=== PATIENT | female | born 1950 | race Caucasian/White ===

== ENCOUNTER 2017-09-16 15:51 | Outpatient (CLI) | payer MEDICARE, BC | END 2017-09-16 15:52 | disposition home or self-care (01) | LOC: BICMAMMO 15:51 | PROVIDERS: ATTEND Family Medicine | DX: Z12.31 Encounter for screening mammogram for malignant neoplasm of breast (principal) | CPT/HCPCS: 77063; 77067 ==

== ENCOUNTER 2018-09-17 14:15 | Outpatient (CLI) | payer MEDICARE, BC ==
--- NOTE | 2018-10-01 15:54 | MMO ---
Bilateral MAMMO Bilat Screen [facility]. CLINICAL HISTORY: Patient is 68 years old and is seen for screening. The patient has no family history of breast cancer. The patient has no personal history of cancer. VIEWS: The views performed were: bilateral craniocaudal with tomosynthesis and bilateral mediolateral oblique with tomosynthesis. FILMS COMPARED: The present examination has been compared to prior imaging studies performed at [facility] on 09/22/2007, 09/21/2008, 09/21/2009, 08/10/2010, 08/10/2011, 08/15/2012, 08/20/2013, 08/20/2014, 08/30/2015, 09/04/2016 and 09/16/2017, and at [facility] on 09/17/2005 and 09/18/2006. MAMMOGRAM FINDINGS: There are scattered fibroglandular densities. There are no suspicious masses, suspicious calcifications, or new areas of architectural distortion. IMPRESSION: THERE IS NO MAMMOGRAPHIC EVIDENCE OF MALIGNANCY. A ROUTINE FOLLOW-UP MAMMOGRAM IN 1 YEAR IS RECOMMENDED. THE RESULTS OF THIS EXAM WERE SENT TO THE PATIENT. ACR BI-RADS Category 1 - Negative MAMMOGRAPHY NOTE: 1. A negative mammogram report should not delay a biopsy if a dominant of clinically suspicious mass is present. 2. Approximately 10% to 15% of breast cancers are not detected by mammography. 3. Adenosis and dense breasts may obscure an underlying neoplasm.
== END 2018-09-17 14:16 | disposition home or self-care (01) ==
LOC: BICMAMMO 14:15
PROVIDERS: ATTEND Family Medicine
DX: Z12.31 Encounter for screening mammogram for malignant neoplasm of breast (principal)
CPT/HCPCS: 77063; 77067

== ENCOUNTER 2019-09-01 14:20 | Outpatient (CLI) | payer MEDICARE, BC ==
[2019-09-01] MEDS ORDERED: Magnevist 469MG/ML 20 ML VIAL ONE (14:42)
--- NOTE | 2019-09-01 15:53 | MRI ---
LUMBAR SPINE MRI WITH AND WITHOUT CONTRAST: HISTORY: Lumbar radiculopathy. Low back pain, mainly down the left leg. COMPARISON: 12/08/2015. TECHNIQUE: MRI lumbar spine is performed with and without intravenous gadolinium administration. Multisequential , multiplanar imaging was performed. FINDINGS: Bilateral transpedicular screws at L4 and L5 with associated metallic susceptibly artifact. There is appropriate T1 marrow signal intensity of the lumbar vertebrae. Lumbar spine vertebral body height is maintained. No fracture. There are type I Modic changes at the L3-L4 level. Spondylolisthesis: L3-L4: 6.9 mm of anterolisthesis. L4-L5: 6.5 mm of anterolisthesis. The spondylolisthesis at L3-L4 has developed since the previous exa mination. There appears be associated bilateral spondylolysis. Anterolisthesis at L4-L5 is stable. Appropriate signal intensity of the visualized paraspinal muscles. T2 hyperintensity in the left renal cortex, compatible with a cortical cyst. Smaller cortical cyst in the right kidney. Conus medullaris terminates at the upper aspect of T12. Postcontrast images do not demonstrate abnormal enhancement within the thecal sac. No abnormal enhanc ement of the cauda equina or conus medullaris. T12-L1: Adequate disc hydration. No significant central canal stenosis or significant neural foramina l narrowing. L1-L2: Adequate disc hydration. Minimal ligament flavum thickening and facet hypertrophy. No signific ant central canal stenosis. Bilaterally, neural foramina are patent. L2-L3: Minimal disc desiccation with minimal loss of disc space height. Broad-based disc bulge, minim al ligament flavum thickening and facet hypertrophy result in mild central canal stenosis. Right neural foramen is patent. Mild left neural foraminal narrowing. L3-L4: Disc desiccation with moderate loss of disc space height. Broad-based disc bulge, ligament fla vum thickening and facet hypertrophy result in moderate to severe central canal stenosis. There is fluid in both facet joints. 0.4 cm left sided synovial cyst, contributes to the overall degree of candice tral canal stenosis. Moderate bilateral neural foraminal narrowing. L4-L5: Disc desiccation with moderate loss of disc space height. Broad-based disc bulge, ligament fla vum thickening and facet hypertrophy result in moderate to severe central canal stenosis. Limited evaluation of the neural foramina due to metallic susceptibly artifact. At least mild bilateral elizabeth inal narrowing. L5-S1: Disc desiccation with moderate loss of disc space height. Broad-based disc bulge contacts the thecal sac. No significant mass effect upon the thecal sac. Disc material encroaches upon the left and right subarticular zone. There is contact with both traversing S1 nerve roots without significant mass effect or obscuration. Mild ligament flavum thickening and facet hypertrophy. Overall no significant central canal stenosis. Mild to moderate bilateral neural foraminal narrowing. Incidental T2 hyperintensity in the thecal sac at the S2 level, likely representing a Tarlov cyst. Septated T2 hyperintensity in the left adnexa, incompletely evaluated possibly representing a 3.2 cm left ovarian cyst. Finding is unchanged from the examination from November 2015. IMPRESSION: 1. Lumbar fusion at L4-L5. Stable grade 1 anterolisthesis of L4 upon L5. 2. Interval development of grade 1 anterolisthesis of L3 upon L4 with associated bilateral spondyloly sis. 3. Significant neural foraminal narrowing and central canal stenosis as described above. Transcribed Date/Time: 09/01/2019 3:59 PM
== END 2019-09-01 14:21 | disposition home or self-care (01) ==
LOC: TBSIIMAG 14:20
PROVIDERS: ATTEND Neurological Surgery
DX: M47.26 Other spondylosis with radiculopathy, lumbar region (principal); M43.16 Spondylolisthesis, lumbar region; M48.061 Spinal stenosis, lumbar region without neurogenic claudication; Z98.1 Arthrodesis status
CPT/HCPCS: 72158; A9579

== ENCOUNTER 2019-10-19 15:18 | Outpatient (CLI) | payer MEDICARE, BC ==
--- NOTE | 2019-10-19 15:59 | MMO ---
Bilateral MAMMO Bilat Screen [facility]. CLINICAL HISTORY: Patient is 69 years old and is seen for screening. The patient has no family history of breast cancer. The patient has no personal history of cancer. VIEWS: The views performed were: bilateral craniocaudal with tomosynthesis; bilateral mediolateral oblique with tomosynthesis; and left mediolateral oblique. FILMS COMPARED: The present examination has been compared to prior imaging studies performed at [facility] on 09/04/2016, 09/16/2017 and 09/17/2018. This study has been interpreted with the assistance of computer-aided detection. MAMMOGRAM FINDINGS: There are scattered fibroglandular densities. There are no suspicious masses, suspicious calcifications, or new areas of architectural distortion. IMPRESSION: THERE IS NO MAMMOGRAPHIC EVIDENCE OF MALIGNANCY. A ROUTINE FOLLOW-UP MAMMOGRAM IN 1 YEAR IS RECOMMENDED. THE RESULTS OF THIS EXAM WERE SENT TO THE PATIENT. ACR BI-RADS Category 1 - Negative MAMMOGRAPHY NOTE: 1. A negative mammogram report should not delay a biopsy if a dominant of clinically suspicious mass is present. 2. Approximately 10% to 15% of breast cancers are not detected by mammography. 3. Adenosis and dense breasts may obscure an underlying neoplasm. Reported by: AMANDA JIM MD Electonically Signed: [id number]
== END 2019-10-19 15:19 | disposition home or self-care (01) ==
LOC: BICMAMMO 15:18
PROVIDERS: ATTEND Family Medicine
DX: Z12.31 Encounter for screening mammogram for malignant neoplasm of breast (principal)
CPT/HCPCS: 77063; 77067

== ENCOUNTER 2020-01-05 06:53 | Outpatient (CLI) | payer MEDICARE, BC, OTHER ==
[2020-01-06 13:33] LABS: SARS-CoV-2 MS2 Positive; SARS-CoV-2 N Gene Negative; SARS-CoV-2 S Gene Negative; SARS-CoV-2 orf1ab Negative
== END 2020-01-05 06:54 | disposition home or self-care (01) ==
LOC: LABBT 06:53
PROVIDERS: ATTEND Neurological Surgery
DX: Z01.812 Encounter for preprocedural laboratory examination (principal); Z11.59 Encounter for screening for other viral diseases; M54.16 Radiculopathy, lumbar region
CPT/HCPCS: 87635; U0003

== ENCOUNTER 2020-01-08 05:47 | Observation (INO) | payer MEDICARE, BC ==
[2020-01-04 12:26] VITALS: BMI 37.5
--- NOTE | 2020-01-08 05:53 | HP ---
HISTORY OF PRESENT ILLNESS: Ms. Paz is known to us for distant lumbar decompression a few years ago, returns now with some semblance of recurrent pain as last summer, this is manifesting as a left lower extremity L5 pattern with some tingling in addition to a deep aching pain. This travels the length of the leg, stopping mid to lower xiong before reaching the foot. She really has no right lower extremity pain to speak of. Her pain is worse when lying flat in bed, more on the left side. She does feel that her leg gives out at times when walking. She sleeps in a recliner as this prevents some of the more severe symptoms. Chiropractor has helped her, although on a limited basis. She takes [id number] medications with marginal relief. New MRI reveals profound spinal stenosis at L3-4, likely explaining really any symptoms below that level. PHYSICAL EXAMINATION: She is alert and oriented x3. Gait is slowed and antalgic. Lower extremity motor exam is normal. Mildly positive left straight leg raise, normal on the right. PAST MEDICAL HISTORY: Hypertension, hypothyroidism. CURRENT MEDICATIONS: Levothyroxine, lisinopril, hydrochlorothiazide, Caltrate, magnesium. ALLERGIES: NO KNOWN DRUG ALLERGIES. PAST SURGICAL HISTORY: Bilateral knee replacement, lumbar decompression, hysterectomy. ASSESSMENT: Lumbar spinal stenosis. PLAN: Dr. Weinberg met with the patient, reviewed imaging, and advocated for an L3-L4 decompression. He explained to the patient risks, benefits, and alternatives to the procedure. The patient expressed understanding and elected to move forward with surgery as discussed. I do believe the patient is mentally competent and capable of making medical decisions for herself. We will move forward with surgery as planned. Job ID: [id number]
[2020-01-08] MEDS ORDERED: Bupivacaine HCl 0.5%/Epinephrine 1:200,000/PF 30 ml Vial ONE (06:24)
[2020-01-08] MEDS ORDERED: Fentanyl 100 MCG/2 ML VIAL ONE ×4 (06:24→09:00)
[2020-01-08] MEDS ORDERED: Thrombin 5000 UNITS/5 ML VIAL ONE (06:39)
[2020-01-08 06:58] LABS: Anion Gap 13 mmol/L (10-20); BUN (Urea Nitrogen) 25 mg/dL (9.8-20.1); Calc. Creatinine Clearance 107 mL/min (70-130); Calcium 9.7 mg/dL (7.8-10.44); Carbon Dioxide 27 mmol/L (23-31); Chloride 102 mmol/L (98-107); Estimated GFR-MDRD 73; Glucose 116 mg/dL (83-110); Potassium 4.1 mmol/L (3.5-5.1); Sodium 138 mmol/L (136-145)
--- NOTE | 2020-01-08 08:25 | OP ---
DATE OF PROCEDURE: 01/08/2020 CARPET MEASURER: Baldo Benavides PA-C. INDICATION: Pain. DIAGNOSIS: Lumbar stenosis with neurogenic claudication. PROCEDURE PERFORMED: L3-L4 decompression. ANESTHESIA: General. DESCRIPTION OF PROCEDURE: The patient was brought into the operating room and placed under general anesthesia. She was flipped from the supine to prone position on the operating room table. A linear incision was planned along the superior aspect of the previously placed incision. After prepping and draping and after an appropriate preoperative pause, the incision was created. The soft tissues were swept away from midline. A self-retaining retractor was placed and a C-arm image was obtained. After confirming the appropriate level with C-arm fluoroscopy, an Adson rongeur was used to move the spinous process of the L3-L4 segment. High-speed cutting drill bit as well as 2, 3, and 4 mm Kerrisons were then used to complete the laminectomy. The laminectomy was extended laterally to encompass the medial aspect of the facet joints. After completing the decompression, the wound was irrigated. Hemostasis was maintained throughout. The wound was then closed in anatomic layers, and a pressure dressing was applied. There were no known procedural complications. Job ID: [id number]
[2020-01-08] MEDS ORDERED: Ondansetron PF 4 MG/2 ML Vial ONE ×2 (10:04→10:25)
[2020-01-08] MEDS ORDERED: Glycopyrrolate 0.2 MG/ML 5 ML SYRINGE ONE (10:25)
[2020-01-08] MEDS ORDERED: Rocuronium Bromide 10 MG/ML (10ML VIAL) ONE (10:25)
[2020-01-08] MEDS ORDERED: Lidocaine 1% PF 5 ML VIAL ONE (10:25)
[2020-01-08] MEDS ORDERED: Dexamethasone 20 MG/5 ML VIAL ONE (10:25)
[2020-01-08] MEDS ORDERED: PROPOFOL 200 MG/20 ML VIAL ONE (10:25)
[2020-01-08] MEDS ORDERED: diphenhydrAMINE 50 MG/ML VIAL IVP PRN (13:52)
[2020-01-08] MEDS ORDERED: Acetaminophen 650 MG Suppository PR PRN (13:52)
[2020-01-08] MEDS ORDERED: Morphine 2 MG/ML VIAL SLOW IVP PRN (13:52)
[2020-01-08] MEDS ORDERED: diphenhydrAMINE 25 MG CAP PO PRN (13:52)
[2020-01-08] MEDS ORDERED: Bisacodyl 10 MG SUPP PR PRN (13:52)
[2020-01-08] MEDS ORDERED: Morphine 4 MG/ML VIAL SLOW IVP PRN (13:52)
[2020-01-08] MEDS ORDERED: Acetaminophen 325 MG TAB PO PRN (13:52)
[2020-01-08] MEDS ORDERED: Acetaminophen/Codeine 30-300mg Tablet PO PRN (13:52)
[2020-01-08] MEDS ORDERED: tiZANidine HCl 4 MG TAB PO PRN (13:53)
[2020-01-08] MEDS: Acetaminophen/Codeine 30-300mg Tablet PO PRN ×2 (14:39→20:56)
[2020-01-08] MEDS: Sodium Chloride 0.9% 1,000 ML IV SCH (14:40)
[2020-01-08] MEDS: CEFAZOLIN 2 GM in Premix Bag 1 BAG IVPB SCH ×2 (14:40→23:11)
[2020-01-09] MEDS: Sodium Chloride 0.9% 1,000 ML IV SCH ×2 (05:06→09:09)
[2020-01-09] MEDS ORDERED: Levothyroxine Sodium 112 MCG TAB PO SCH (06:00)
[2020-01-09] MEDS ORDERED: Lisinopril/Hydrochlorothiazide 20/25 mg Tablet PO SCH (09:00)
[2020-01-09 11:49] VITALS: BP 104/63; TEMP 97.8
--- NOTE | 2020-01-09 12:46 | DIS ---
DATE OF ADMISSION: 01/08/2020 DATE OF DISCHARGE: 01/09/2020 Ms. Paz was admitted to [facility] on January 08, 2020 with discharged on January 09, 2020. ADMISSION DIAGNOSIS: Status post lumbar decompression. DISCHARGE DIAGNOSIS: Status post lumbar decompression. There were no consultations or tests ordered during concerns or troubles overnight. Pain was excellently managed with our typical postoperative medications. She ambulated early and often, and ultimately was discharged home in excellent condition with outpatient followup planned in 2 weeks' time. Job ID: [id number]
== END 2020-01-09 14:54 | disposition home or self-care (01) ==
LOC: SDC 05:47 → SURG A 13:32
PROVIDERS: ADMIT Neurological Surgery; ATTEND Neurological Surgery
PROC: 00NY0ZZ Release Lumbar Spinal Cord, Open Approach (ICD-10-PCS; principal; 2020-01-08)
DX: M48.062 Spinal stenosis, lumbar region with neurogenic claudication (principal); I10 Essential (primary) hypertension; E03.9 Hypothyroidism, unspecified; Z79.899 Other long term (current) drug therapy
CPT/HCPCS: 76000; 80048; 93005; 93010; 96365; 96366; G0378; J0670; J0690; J1100; J2405; J2704; J3010

== ENCOUNTER 2020-10-20 15:03 | Outpatient (CLI) | payer MEDICARE, BC | END 2020-10-20 15:04 | disposition home or self-care (01) | LOC: BICMAMMO 15:03 | PROVIDERS: ATTEND Family Medicine | DX: Z12.31 Encounter for screening mammogram for malignant neoplasm of breast (principal) | CPT/HCPCS: 77063; 77067 ==

== ENCOUNTER 2021-10-23 14:58 | Outpatient (CLI) | payer MEDICARE, BC | END 2021-10-23 14:59 | disposition home or self-care (01) | LOC: BICMAMMO 14:58 | PROVIDERS: ATTEND Family Medicine | DX: Z12.31 Encounter for screening mammogram for malignant neoplasm of breast (principal) | CPT/HCPCS: 77063; 77067 ==